=== PATIENT | female | born 1970 | race Caucasian/White ===

== ENCOUNTER 2016-10-03 14:53 | Emergency (ER) | payer OTHER ==
[~2016-10-03] VITALS: Ht 160 cm; Wt 55.8 kg
[~2016-10-03 14:53] MED LIST: PREN0.01 PO
[2016-10-03 14:59] VITALS: BP 115/78; PULSE 69; RESP 15; TEMP 98.1; O2SAT 99
--- NOTE | 2016-10-03 15:56 | PD ---
HPI Chief Complaint: Pain: Acute or Chronic Time Seen by Provider: 15:13 Travel History International Travel<30 days: No Contact w/Intl Traveler<30days: No Traveled to known affect area: No History of Present Illness HPI The patient was seen and examined in the presence of the nurse. This patient complains of chest pain. Duration one day. It's a very brief sharp stabbing pain that lasts literally 1 second and goes away. It occurs in the left upper chest. She came to the ER because her doctor could not see her today. No shortness of breath or chest wall injury or fever or active cough. Denies history of probable pulmonary cardiac disease. Severity is mild. No alleviating factors. PFSH Past Medical History Headaches: Yes Tetanus Vaccination: > 5 Years Influenza Vaccination: No ?: Not LMP: 3 weeks ago : 2 Para: 1 Past Surgical History Other Surgery: Yes (Breast augmentation, septoplasty ) Social History Alcohol Use: No Tobacco Use: No Substance Use: No Allergies-Medications (Allergen,Severity, Reaction): Coded Allergies: Amoxicillin (Verified Allergy, Mild, Rash, 10/03/16) Reported Meds & Prescriptions Reported Meds & Active Scripts Active No Active Prescriptions or Reported Medications Review of Systems General / Constitutional: No: Fever Eyes: No: Visual changes HENT: No: Headaches Cardiovascular: Positive: Chest Pain or Discomfort Respiratory: No: Shortness of Breath Gastrointestinal: No: Abdominal Pain Genitourinary: No: Dysuria Musculoskeletal: No: Pain Skin: No Rash Neurologic: No: Weakness Psychiatric: No: Depression Endocrine: No: Polydipsia Hematologic/Lymphatic: No: Easy Bruising Physical Exam Narrative GENERAL: Well-nourished, well-developed patient in no apparent distress. SKIN: Focused skin assessment reveals no rash and nodules. Skin is Warm and dry. HEAD: Atraumatic. Normocephalic. EYES: Pupils equal and round. No scleral icterus. No injection or drainage. ENT: No nasal bleeding or discharge. Mucous membranes pink and moist. NECK: Trachea midline. No JVD. CARDIOVASCULAR: Regular rate and rhythm. No murmur appreciated. RESPIRATORY: No accessory muscle use. Clear to auscultation. Breath sounds equal bilaterally. GASTROINTESTINAL: Abdomen soft, non-tender, nondistended. Hepatic and splenic margins not palpable. MUSCULOSKELETAL: No obvious deformities. No clubbing. No cyanosis. No edema. No chest wall tenderness NEUROLOGICAL: Awake and alert. No obvious cranial nerve deficits. Motor grossly within normal limits. Normal speech. PSYCHIATRIC: Appropriate mood and affect; insight and judgment normal. Data Data Last Documented VS Vital Signs Date Time Temp Pulse Resp B/P Pulse Ox O2 Delivery O2 Flow Rate FiO2 10/03/16 15:10 68 10/03/16 14:59 98.1 15 115/78 99 Orders Electrocardiogram (10/03/16 ) MDM Medical Decision Making Medical Screen Exam Complete: Yes Emergency Medical Condition: Yes Medical Record Reviewed: Yes Differential Diagnosis Chest wall pain, angina, cardiac arrhythmia Narrative Course I have reviewed the patient's electronic medical record. The patient's exam and vitals are normal. Chest pain is clearly noncardiac in origin. It will not require inpatient evaluation. I reviewed her EKG which shows sinus rhythm without ST elevation Primary care follow-up recommended Diagnosis Primary Impression: Non-cardiac chest pain Additional Instructions: The patient was advised to follow up with their physician and return if they worsen. Med/Other Pt SpecificInfo: Other Scripts No Active Prescriptions or Reported Meds Disposition: 01 DISCHARGE HOME Condition: Stable Francois Ventura MD Oct 03, 2016 15:56
--- NOTE | 2016-10-04 16:39 | EKG ---
Date Performed: 10/03/2016 Time Performed: 15:27:13 PTAGE: 45 years EKG: Sinus rhythm WITH SHORT GA INTERVAL NON-SPECIFIC ST/T WAVE CHANGES BORDERLINE ECG NO PREVIOUS TRACING DOCTOR: Stanford Wisdom Interpretating Date/Time 10/04/2016 16:39:31
== END 2016-10-03 16:10 | disposition home or self-care (01) ==
LOC: PHED 14:53
DX: R07.89 Other chest pain (principal); Z88.0 Allergy status to penicillin
CPT/HCPCS: 93005